=== PATIENT | female | born 1955 | race Two or more races ===

== ENCOUNTER 2024-03-20 15:43 | Emergency (ER) | payer MEDICAID, OTHER ==
[~2024-03-20] VITALS: Ht 152.4 cm; Wt 57.0 kg
[2024-03-20 18:55] VITALS: BP 126/69; PULSE 67; RESP 20; TEMP 98.8; O2SAT 97
[2024-03-20] MEDS ORDERED: ACE3T PO (19:39)
== END 2024-03-20 21:17 | disposition home or self-care (01) ==
LOC: ER 15:43
DX: S72.402A Unspecified fracture of lower end of left femur, initial encounter for closed fracture (principal); I10 Essential (primary) hypertension; Z90.49 Acquired absence of other specified parts of digestive tract; W01.0XXA Fall on same level from slipping, tripping and stumbling without subsequent striking against object, initial encounter; Y93.89 Activity, other specified; Y92.89 Other specified places as the place of occurrence of the external cause; Y99.8 Other external cause status
CPT/HCPCS: 29505; 73562; 93971